=== PATIENT | female | born 1955 | race Caucasian/White ===

== ENCOUNTER → 2016-05-18 | Day surgery (SDC) | payer MEDICARE ==
[~2016-05-18] MED LIST: ALBU17I; BIOT5000 PO; BUPIVACAINE HCL PF 0.25% 30 ML VIAL ONE; CALCCHW6 CHEW; CLAR10TA13; CLINDAMYCIN PHOS 600 MG/4 ML VIAL ONE; CO Q100C9 PO; CRES10TA PO; ESTR1TAB; ESTR30V PV; HYDR200T42 PO; IPRA0.02 NEB; LACTATED RINGER'S 1000 ML INJ 1,000 ML ONE; LEVO.05 PO; LOPE2 PO; MIDAZOLAM HCL 2 MG/2 ML VIAL ONE; NAPR-576 PO; OMEP20TA PO; ONDANSETRON HCL 4 MG/2 ML VIAL IV PUSH ONE; PROMETHAZINE INJ 25 MG/ML VIAL ONE; PROPOFOL 200 MG/20 ML AMP IV ONE; RANI150T PO; SODIUM CHLORIDE 0.9% SOLN 100 ML (PAB) BAG IV ONE; TRIA3AER; VITA20002 PO; ZOFR4TAB3 SL
--- NOTE | 2016-05-18 23:46 | MP ---
cc: LETICIA EVANS DPM DATE OF SURGERY: 05/18/2016 PREOPERATIVE DIAGNOSIS: Left fifth metatarsal pain with bunionette deformity. POSTOPERATIVE DIAGNOSIS Left fifth metatarsal pain with bunionette deformity. PROCEDURES PERFORMED Left fifth metatarsal osteotomy. MATERIALS USED X2 [employer] screws. SPECIMEN None ESTIMATED BLOOD LOSS Less than 38 mL COMPLICATIONS None ANESTHESIA General with local 15 cc of 0.25% Marcaine plain. DRAINS: None. TOURNIQUET TIME 30 minutes at a setting of 215 mmHg. PLAN OF ACTIVITY: PACU. Then DC home once stable per Same-Day Surgery criteria. PROCEDURE IN DETAIL Under mild sedation the patient was brought to the operating room, placed on the operating table in the supine position. Following the induction of general anesthesia, local anesthesia was obtained about the forefoot utilizing standard block fashion. The patient's left foot was then scrubbed, prepped and draped in the usual aseptic fashion. The foot was elevated, exsanguinated and a previously placed mid ankle tourniquet was inflated at 215 mmHg. The left foot was identified. There was noted to be a prominent dorsal lateral eminence. An incision was made over the dorsal aspect of the fifth metatarsal. Sharp and blunt dissection was carried down to the capsular layer. An L-shaped capsulotomy was performed revealing a prominent dorsal lateral eminence, an offset V osteotomy was performed at the distal fifth metatarsal and transposed laterally 3 mm and fixated utilizing x2 2.0 cannulated [employer] screws. There was compression across the osteotomy site. The redundant proximal shelf was then transected. There was noted to be correction of the bunionette deformity seen clinically and radiographically. The plantar prominent condyle was also transected off the distal plantar fifth metatarsal head. Capsular and periosteal layer was closed utilizing Monocryl, deep dermis was closed utilizing Monocryl. Skin was closed utilizing nylon. Upon relieving tourniquet there was a prompt hyperemic response to all digits without any delayed capillary fill time. The patient was transferred from OR to PACU after receiving a bulky bandage and placed within a controlled ankle motion boot. She is heel-weightbear to tolerance. She will follow up in 3-5 days. Leticia B. Srikanth, DPM DBM/DARRYL /1:40 PM /11:38 PM
== END | disposition home or self-care (01) ==
LOC: ESDC 11:48
PROVIDERS: ATTEND Podiatrist Foot & Ankle Surgery
DX: M21.622 Bunionette of left foot (principal)
CPT/HCPCS: 01480; 28308; 73620; 76000; C1713; J2250; J2405; J2550; J3010; J7120